=== PATIENT | female | born 1965 | race American Indian/Alaskan Native ===

== ENCOUNTER 2017-02-17 09:37 | Outpatient (CLI) | payer BC ==
--- NOTE | 2017-02-20 09:19 | Magnetic Resonance Report ---
BILATERAL BREAST MRI WITHOUT AND WITH CONTRAST: 02/17/17 09:37:00 CLINICAL: High risk for breast cancer. History of BRCA polymorphism and a family history of breast and ovarian cancer. COMPARISON:05/26/15. TECHNIQUE: Axial 1.0-mm T1 without, axial high resolution 2.0-mm T2 and axial 1.0-mm dynamic Vibrant high-resolution postcontrast T1 fat saturation sequences on a 1.5 Ivon magnet. The examination was performed with an 8 channel dedicated [employer] breast coil. Post processing with CAD and subtraction was performed on an [employer] workstation. 20 cc of Multihance was injected without incident for the contrast portion of the exam. Consent was obtained prior to the administration of the contrast. FINDINGS: Right: Minimal background parenchymal enhancement. No mass or suspicious enhancement of the right breast. A biopsy clip is identified at 12 o'clock approximately 9 cm from the nipple. No suspicious lymph nodes. Left: Minimal background parenchymal enhancement. No mass or suspicious enhancement of the left breast. No suspicious lymph nodes. IMPRESSION: Normal study. BI-RADS 1 -- Negative
== END 2017-02-17 09:38 | disposition home or self-care (01) ==
LOC: SPVIMAG 09:37
DX: Z80.3 Family history of malignant neoplasm of breast (principal); Z80.41 Family history of malignant neoplasm of ovary
CPT/HCPCS: 0159T; A9577; C8908; 77059

== ENCOUNTER 2019-11-01 09:22 | Outpatient (CLI) | payer BC ==
--- NOTE | 2019-11-01 11:27 | Fluoroscopy Report ---
UPPER GI HISTORY: K21.9 GASTRO-ESOPHAGEAL REFLUX DISEASE WITHOUT ESOPHAGITIS. TECHNIQUE: Single and double contrast barium technique utilized to evaluate the esophagus, stomach, and duodenal C-loop. FINDINGS: To begin the exam, swallowing was evaluated in the lateral position under direct fluorosco py. Swallowing was normal. The esophagus is normal caliber and mucosal pattern throughout. Occasional tertiary contractions were noted cyst in the esophagus consistent with mild esophageal dysmotility. A small hiatal hernia is al so suspected. A lap band is identified which appears in adequate position. No obstruction. There is normal filling of the gastric cavity, duodenal bulb and duodenal sweep. No gastroesophageal reflux was witnessed during this exam. IMPRESSION: Small hiatal hernia. Mild esophageal dysmotility. Fluoroscopic time: 1.5 minutes Number of fluoroscopic images: 36 Signer Name: Julius Moreira Jr, MD Signed: 11/01/2019 11:23 AM Workstation Name: [id number]
== END 2019-11-01 09:23 | disposition home or self-care (01) ==
LOC: FLUORO 09:22
PROVIDERS: ATTEND Surgery
DX: K44.9 Diaphragmatic hernia without obstruction or gangrene (principal); K22.8 Other specified diseases of esophagus; K21.9 Gastro-esophageal reflux disease without esophagitis
CPT/HCPCS: 74246

== ENCOUNTER 2019-11-15 06:53 | Day surgery (SDC) | payer BC, OTHER ==
[2019-11-15] MEDS ORDERED: SODIUM CHLORIDE 0.9% 1000 ML 1,000 ML IV SCH (07:00)
[2019-11-15] MEDS ORDERED: WATER FOR IRRIG STERILE 1,000 ML BOTTLE ONE (07:07)
[2019-11-15] MEDS ORDERED: WATER FOR IRRIG STERILE 250 ML BOTTLE IR ONE (07:07)
--- NOTE | 2019-11-15 07:34 | Anesthesia Consultation ---
Anesthesia Consult and Med Hx Date of service: 11/15/19 - Airway Anesthetic Teeth Evaluation: Good ROM Head & Neck: Adequate Mental/Hyoid Distance: Adequate Mallampati Class: Class II Intubation Access Assessment: Probably Good - Pre-Operative Health Status ASA Pre-Surgery Classification: ASA3 Proposed Anesthetic Plan: MAC - Pulmonary Hx Smoking: No Hx Asthma: No Hx Respiratory Symptoms: No SOB: No COPD: No Home Oxygen Therapy: No Hx Pneumonia: No Hx Sleep Apnea: Yes (use CPAP) - Cardiovascular System Hx Hypertension: No Hx Coronary Artery Disease: No Hx Heart Attack/AMI: No Hx Angina: No Hx Percutaneous Transluminal Coronary Angioplasty (PTCA): No Hx Cardia Arrhythmia: No Hx Pacemaker: No Hx Internal Defibrillator: No Hx Valvular Heart Disease: No Hx Heart Murmur: No Hx Peripheral Vascular Disease: No - Central Nervous System Hx Neuromuscular Disorder: No Hx Seizures: No CVA: No Hx Back Pain: No Hx Psychiatric Problems: Yes (anexity) - Gastrointestinal Hx Ulcer: No Hx Gastroesophageal Reflux Disease: No - Endocrine Hx Renal Disease: No Hx End Stage Renal Disease: No Hx Cirrhosis: No Hx Liver Disease: No Hx Insulin Dependent Diabetes: No Hx Non-Insulin Dependent Diabetes: Yes Hx Thyroid Disease: No Hx Hypothyroidism: No Hx Hyperthyroidism: No - Hematic Hx Anemia: No Hx Sickle Cell Disease: No - Other Systems Hx Alcohol Use: No Hx Substance Use: No Hx Cancer: No Hx Obesity: Yes
--- NOTE | 2019-11-15 07:35 | Anesthesia Day of Surgery ---
Anesthesia Day of Surgery - Day of Surgery Patient Examined: Yes Patient H&P Reviewed: Yes Patient is NPO: Yes Beta Blockers: No
[2019-11-15] MEDS ORDERED: PROPOFOL 200 MG/20 ML VIAL IV ONE (07:53)
[2019-11-15] MEDS ORDERED: FAMOTIDINE 20 MG/2 ML INJ IV NR (08:00)
[2019-11-15] MEDS ORDERED: LIDOCAINE MPF (2%) 20 MG/1 ML VIAL 5 ML ONE (08:00)
--- NOTE | 2019-11-15 08:12 | Discharge Summary ---
Providers - Providers Date of Admission: 08/15/20 Date of discharge: 11/15/19 Attending physician: TOMMIE JOHNSON MD Primary care physician: JANEY LOZADA Hospitalization Reason for admission: egd Condition: Good Procedures: egd Hospital course: pt had an uneventful egd as part of pre-op work up prior to bariatric surgery Disposition: DC-01 TO HOME OR SELFCARE Core Measure Documentation - Palliative Care Palliative Care/ Comfort Measures: Not Applicable - Core Measures Any of the following diagnoses?: none Exam - Physical Exam Narrative exam: unchanged from pre-op - Constitutional Vitals: Temp Pulse Resp BP Pulse Ox 97.9 F 64 16 123/58 98 11/15/19 07:29 11/15/19 07:29 11/15/19 07:29 11/15/19 07:29 11/15/19 07:29 Plan Activity: no restrictions Weight Bearing Status: Full Weight Bearing Diet: low carbohydrate Follow up with: JANEY LOZADA MD [Primary Care Provider] - 7 Days
--- NOTE | 2019-11-15 08:22 | Operative Report ---
Operative Report Operative Report: DATE 11/15/2019 SURGERY: Upper endoscopy with antral biopsy SURGEON: Sadia Calvin M.D. PACKAGING OPERATOR: n/a PRE OP DX: GERD, history of gastric lap band POST OP DX: same as pre-op TYPE OF ANESTHESIA: MAC. ESTIMATED BLOOD LOSS: None. COMPLICATIONS: None. SPECIMENS REMOVED: antral mucosal biopsy FINDINGS: 1. food bolus obstructing pylorus for full visualization of the duodenum 2. adequate band placement. INDICATIONS:INDICATION FOR PROCEDURE: Patient is a 53-year-old female with a long history of morbid obesity and history of gastric banding who has struggled with significant reflux. She has since had the fluid removed and is having less symptoms. She is planned to have removal of her gastric band and conversion to another bariatric procedure and is here for preoperative planning EGD. PROCEDURE DETAILS: After consent was reviewed, patient was taken back to the operating room where patient was placed in the left lateral decubitus position and a bite block was placed in the mouth. After a time-out was called, MAC anesthesia was initiated. I then passed the endoscope into her oropharynx, into her esophagus, visualized the entire esophagus, which was all within normal limits. Her Z-line was observed to be regular and about 35cm from the incisors. The stomach then distended appropriately with insuflation. There was noted to be an appropriate proximal narrowing of the stomach from external compression of her gastric band. This area was easily traversed. The remainder of the stomach distended properly and a food bolus was visualized. A portion of the food bolus obscured the pylorus, this not allowing for full examination of the duodenum. The remainder of the stomach appeared normal. I then retroflexed the scope in the stomach and visualized the underside of the band, which appeared normal. A cold biopsy was taken of the antral mucosa to evaluate for h.pylori for comprehensive pre-op for bariatric surgery. I then desufflated the stomach and removed the endoscope. Patient tolerated procedure well and was transferred to recovery room in good and stable condition. An EGD will be preformed on the day of surgery before commencing to evaluate for any abnormalities in the areas that could not be seen today.
--- NOTE | 2019-11-15 08:22 | Post Anesthesia Evaluation ---
- Post Anesthesia Evaluation Patient Participated: Yes Airway Patent: Yes Stable Respiratory Function: Yes Temp > 96.8F: Yes Pain Manageable: Yes Adequeate Hydration: Yes Anesthesia Complications: No
[2019-11-15 08:57] VITALS: BP 128/68
== END 2019-11-15 06:54 | disposition home or self-care (01) ==
LOC: GIO 06:53
PROVIDERS: ATTEND Surgery
DX: K21.9 Gastro-esophageal reflux disease without esophagitis (principal); K29.50 Unspecified chronic gastritis without bleeding; I10 Essential (primary) hypertension; E78.5 Hyperlipidemia, unspecified; G93.2 Benign intracranial hypertension; E66.01 Morbid (severe) obesity due to excess calories; E78.00 Pure hypercholesterolemia, unspecified; G47.30 Sleep apnea, unspecified; E11.9 Type 2 diabetes mellitus without complications; F41.9 Anxiety disorder, unspecified; Z79.899 Other long term (current) drug therapy; Z79.84 Long term (current) use of oral hypoglycemic drugs; Z68.37 Body mass index [BMI] 37.0-37.9, adult; Z98.890 Other specified postprocedural states; Z98.891 History of uterine scar from previous surgery
CPT/HCPCS: 43239; 82962; 88305; 88342; J2704; J7030

== ENCOUNTER 2021-04-30 09:22 | Outpatient (CLI) | payer BC ==
--- NOTE | 2021-04-30 16:45 | Mammography Report ---
DIGITAL SCREENING MAMMOGRAM WITH TOMOSYNTHESIS WITH CAD, 04/30/2021 CLINICAL INFORMATION / INDICATION: Screening TECHNIQUE: Digital bilateral 2D and 3D mammography with tomosynthesis was obtained in the craniocaud al and mediolateral oblique projections. Computer-Aided Detection (CAD) analysis was used for interp retation of this study. COMPARISON: 09/06/2019 FINDINGS: Breast Density: There are scattered areas of fibroglandular density. No dominant mass, suspicious calcifications, or architectural distortion in either breast. Right biopsy changes are again seen. Minimal nodularity is stable. IMPRESSION: No mammographic evidence of malignancy. Follow up recommendation: Routine yearly BI-RADS Category 2: Benign. A "normal" or negative report should not discourage follow up or biopsy of a clinically significant f inding. A written summary of these findings will be mailed to the patient. The patient will be entered into a mammography reporting system which will generate a reminder letter for the patient's next appointmen t at the appropriate interval. The [employer] recommends yearly mammograms starting at age 40 and continuing as l cinthya as a woman is in good health. Breast MRI is recommended for women with an approximate 20-25% or greater lifetime risk of breast cancer, including women with a strong family history of breast or ova dixie cancer or who have been treated for Hodgkin's disease. Signer Name: Willis Sheikh MD Signed: 04/30/2021 4:41 PM Workstation Name: [id number]
== END 2021-04-30 09:23 | disposition home or self-care (01) ==
LOC: SPVWC 09:22
PROVIDERS: ATTEND Surgery
DX: Z12.31 Encounter for screening mammogram for malignant neoplasm of breast (principal)
CPT/HCPCS: 77063; 77067